=== PATIENT | female | born 1955 | race Caucasian/White ===

== ENCOUNTER 2022-01-03 21:35 | Emergency (ER) | payer SELFPAY ==
[~2022-01-03 21:35] MED LIST: Sodium Chloride 0.9% 1,000 ML ONE
[2022-01-03] MEDS ORDERED: Acetaminophen 500 MG Tab PO ONE (21:41)
[2022-01-03] MEDS ORDERED: HYDROmorphone 0.5 MG/0.5 ML Syringe IVPUSH ONE (21:46)
[2022-01-03] MEDS ORDERED: Ondansetron 4 MG/2 ML SDV IVPUSH STA (21:46)
[2022-01-03] MEDS ORDERED: Sodium Chloride 0.9% 1,000 ML IV ONE (21:52)
[2022-01-03] MEDS ORDERED: Piperacillin/Tazobactam 4.5 GM in Sodium Chloride 0.9% 100 ML IV ONE (22:11)
[2022-01-03] MEDS ORDERED: VANCOmycin 2 GM/400 ML 2 GM in Premix Bag 1 BAG IV ONE (22:12)
[2022-01-04] MEDS ORDERED: Iopamidol 755 Mg/ML 100 ML Bottle IVPUSH ONE (00:10)
[2022-01-04] MEDS ORDERED: Sodium Chloride 0.9% 1,000 ML IV ONE (00:45)
[2022-01-04] MEDS ORDERED: HYDROmorphone 1 MG/ML Syringe IVPUSH ONE (01:27)
[2022-01-04] MEDS ORDERED: Sodium Chloride 0.9% 500 ML IV SCH (01:30)
== END 2022-01-04 03:09 ==
LOC: CC.ED 21:35
DX: A41.9 Sepsis, unspecified organism (principal); C69.91 Malignant neoplasm of unspecified site of right eye; Z20.822 Contact with and (suspected) exposure to COVID-19
CPT/HCPCS: 36415; 71045; 74177; 80053; 81001; 83605; 83735; 85025; 86140; 87040; 87635; 96361; 96365; 96366; 96367; 96375; 96376; 99284; 99285; A9270; J1170; J2405; J2543; J3370; J7030; J7040; Q9967; U0002